=== PATIENT | male | born 1950 ===

== ENCOUNTER 2016-07-11 02:10 | Emergency (ER) | payer OTHER ==
[~2016-07-11 02:10] MED LIST: COLACE100 MG PO; NAPROSYN250 MG PO; NORCO1 TA1 PO; PEPCID20 MG PO; PERCOCET1 TA1 PO
--- NOTE | 2016-07-11 02:38 | ED CLINICAL REPORT ---
Clinical Report - Physicians/Mid Levels [facility] [address] [place] [address] 07/11/2016 2:15 [id number] Time Seen: 0225; initial patient contact. Arrived- By private vehicle. HISTORY OF PRESENT ILLNESS Chief Complaint: UPPER EXTREMITY PAIN. Modifying factors- worsened by movement. Made better by rest. This started today and is still present and worsening. It was abrupt in onset and has been constant but is not gone now. Severity is described as being severe. The quality is noted to be sharp, aching and similar to prior episodes. No radiation. No chest pain, difficulty breathing, sensory loss, motor loss or repetitive hand use at work. He has had swelling, but not had redness. (states he has gout and took colchicine. also states he took "oxycodone" but that has not helped. hx of gout. had a few drinks prior.). Patient denies an injury. Similar symptoms previously: Several times. Recent medical care: The patient was seen recently in a clinic. ( was told he needs to be on allopurinol but forgot to take it.). REVIEW OF SYSTEMS No fever or chills. All systems otherwise negative, except as recorded above. PAST HISTORY See nurses notes. SOCIAL HISTORY Never smoker. Alcohol use. History of occasional drug use: marijuana. No recent travel. Is a local resident. ADDITIONAL NOTES The nursing notes have been reviewed. PHYSICAL EXAM Vital Signs: 07/11/2016 02:22 BP: 160/95. HR: 107. RR: 17. O2 saturation: 95%. Temp: 98.1 F. Blood pressure normal. Oxygen saturation normal. Appearance: Alert. Oriented X3. No acute distress. CVS: Normal heart rate and rhythm. Heart sounds normal. Respiratory: No respiratory distress. Breath sounds normal. Abdomen: Soft and nontender. No organomegaly. Back: Normal inspection. No tenderness. ROM normal. Skin: Skin intact. Skin warm and dry. Normal skin color. Normal skin turgor. No pallor. Extremities: No lower extremity edema. (mild tenderness to the right wrist. no overlying skin changes. no increased warmth. no erythema. no crepitus. no rogelio abnormalities. decreased ROM secondary to pain. is able to move joint. compartments soft.). Extremities otherwise negative. Neuro: Oriented X 3. No motor deficit. No sensory deficit. PROGRESS AND PROCEDURES Course of Care: the patient is a pleasant 65-year-old male with past medical history significant for gout presented for reduction of wrist pain. Atraumatic based on patient's history. No signs of septic joint at this time. Likely gouty arthritis flare. Because of the patient's recent alcohol consumption and history of gout, we'll treat conservatively as a gout flare. No signs of septic joint at this time. Patient is afebrile. Overlying skin changes. Patient is able to move the joint however does so with some increase in pain. Patient is agreeable to the treatment plan. Patient's pain had resolved while here in the emergency department. No concern for septic joint at this time. Had a long discussion with patient in regards to gout and triggers for the count. Sited his recent alcohol consumption earlier this evening for the possible flare. Also discussed the patient other food triggers. Also discussed the patient possible infectious etiology. Because the patient's improved symptoms with analgesia and his colchicine, do not feel further workup in the emergency department is required. Do not feel laboratory studies or imaging would traffic incident management manager rkup. Emergency Department including diagnosis, home careuestions have been answered. The patient expressed understanding of m. Patient has been discharged home to a safe ride. Repeat examination continues to be reassuring. Disposition: Discharged. Condition: good. CLINICAL IMPRESSION 07/11/2016 02:22 BP: 160/95. HR: 107. RR: 17. O2 saturation: 95%. Temp: 98.1 F. Hypertensive. Oxygen saturation normal. Acute monoarthritis of the right wrist due to gout. Essential hypertension. INSTRUCTIONS Warnings: INFECTION: Watch for signs of infection (increasing heat and redness, pus-like drainage, swelling, or increased pain). Return or see your doctor if these signs occur. SEDATIVE MEDICATION: You were given sedative medication during your visit. Do not drive or operate dangerous machinery. CONTROLLED SUBSTANCE WARNINGS. GENERAL WARNINGS: Return or contact your physician immediately if your condition worsens or changes unexpectedly, if not improving as expected, or if other problems arise. Specifically return if pain, vomiting, bleeding, breathing difficulty or fever. Your Current Medications: CONTINUE TAKING THE FOLLOWING MEDICATIONS: Allopurinol Oral : not taking. Colchicine Oral : Tablet 0.6 mg, 2 tablets daily, gout. OxyCODONE HCl Oral : 5 mg, prn. Prescription Medications: morphine sulfate IR 15 mg tab. Take on tab every 6 hours as needed for break through pain. Disp 10 tabs. No refill. substitution allowed. Follow-up: Return to the emergency department as needed. Follow up with your doctor in three days. Reason for referral: recheck today's concerns. Summary of care provided to patient via paper. Screening today revealed the patient's blood pressure to be in the hypertensive range. The patient should follow up with a primary care provider for blood pressure management. Understanding of the discharge instructions verbalized by patient. (Electronically signed by Thai Stephens Dr. 07/15/2016 12:28)
--- NOTE | 2016-07-11 02:38 | ED NURSING NOTES ---
Clinical Report - Nurses Merged With [facility] [address] [place] [address] 07/11/2016 2:15 [id number] TRI[facility] Triage time 02:22. Acuity: LEVEL 4. Chief Complaint: RIGHT UPPER EXTREMITY PAIN and SWELLING. Alert. No acute distress. --02:27 Ashleigh Powell R.N. 02:22 07/11/16. BP: 160/95. HR: 107. RR: 17. O2 saturation: 95%. Temp: 98.1 F (oral). --02: Ashleigh Powell R.N. Weight: 124.7 kg stated. Height/Length: 72 inches Per Patient. BMI: 37.3. --02:23 Ashleigh Powell R.N. Medications Colchicine Oral (Tablet 0.6 mg) 2 tablets, daily, gout. --02:23 Ashleigh Powell R.N. Allopurinol Oral (not taking). --02:25 Ashleigh Powell R.N. OxyCODONE HCl Oral 5 mg, as needed. --02:26 Ashleigh Powell R.N. Allergies No Known Drug Allergy. --02:23 Ashleigh Powell R.N. History Arrived by private vehicle. Historian: patient. Primary physician (Chela). This occurred (about 3 days ago). 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 PAST MEDICAL HX: Tetanus status: up-to-date. SOCIAL HX: Never smoker. Regular alcohol use. History of occasional drug use: marijuana. NUTRITIONAL RISK ASSESSMENT: The nutritional risk assessment revealed no deficiencies. FUNCTIONAL ASSESSMENT: Functional assessment: no impairments noted. --:27 Ashleigh Powell R.N. PROBLEMS: Gout. --02:24 Ashleigh Powell R.N. ADDITIONAL SURGERIES: Knee Surgery. --02:24 Ashleigh Powell R.N. Interventions ID band on patient. To treatment room. --02:27 Ashleigh Powell R.N. PHYSICAL ASSESSMENT Ambulatory to room. EXTREMITIES: Neuro-vascular status intact to the extremity. Right wrist: tenderness and swelling. SKIN: Skin is warm and dry. --02:28 Ashleigh Powell R.N. NURSING PROGRESS NOTES Two patient identifiers checked. Call light placed in reach. Side rails up x 1. Bed placed in lowest position. Brakes of bed on. --02:28 Ashleigh Powell R.N. Patient ready for evaluation- chart flagged. --02:28 Ashleigh Powell R.N. 02:41 07/11/2016 Dilaudid (HYDROmorphone HCl PF) IM 2 mg given. Given in the right ventral gluteus. Allergies verified, confirmed 5 rights and sedative warning given to the patient. --02:41 Ronald Archibald R.N. 02:57 Right wrist wrapped in towel with 2 gloves filled with hot water and covered with warm blanket. --02:59 Ronald Archibald R.N. DISPOSITION / DISCHARGE 03:54 07/11/16. BP: 124/78. HR: 97. RR: 16. O2 saturation: 94% on room air. Temp: deferred. Mojica-Ann pain scale: 2/10. --03:55 Ashleigh Powell R.N. Condition at departure: improved. No learning barriers present. Discharge instructions provided and reviewed with the patient and spouse. Reviewed medication(s) side effects, precautions, dosing and course information. Prescription(s) given to the patient. Patient verbalized understanding. Written instructions provided in Georgian. The patient was discharged home and accompanied by spouse. He left the Emergency Department ambulatory and via private vehicle. Spouse driving. --03:55 Ashleigh Powell R.N. Locked/Released at 07/11/2016 3:56 by Ashleigh Powell R.N.
--- NOTE | 2016-07-11 02:38 | ED ORDER SUMMARY ---
..... Patient: MELANI BARRIENTOS OrderSheet [facility] VisitID: [id number] [address] [place] [address] 65y, M Registration Date/Time: 07/11/2016 ORDER SHEET Weight: 124.7 kg (stated) Allergies: No Known Drug Allergy GENERAL ORDERS: MEDICATION ORDERS: Dilaudid IM 2 mg (HIGH ALERT MEDICATION, NOW) (02:30 07/11/2016 Radha Nevarez) (Ack 2:37 JQuivey R.N.) (2:41 JQuivey R.N.) IV FLUIDS: ORDER SHEET NOTES: [Electronically signed by Ashleigh Powell R.N. (03:56 07/11/2016)] [Electronically signed by Thai Stephens Dr. (12:28 07/15/2016)] [Electronically locked/signed by Ashleigh Powell R.N. (03:56 07/11/2016)]
--- NOTE | 2016-07-11 02:38 | ED ORDER SUMMARY ---
..... Patient: MELANI BARRIENTOS OrderSheet [facility] VisitID: [id number] [address] [place] [address] 65y, M Registration Date/Time: 07/11/2016 ORDER SHEET Weight: 124.7 kg (stated) Allergies: No Known Drug Allergy GENERAL ORDERS: MEDICATION ORDERS: Dilaudid IM 2 mg (HIGH ALERT MEDICATION, NOW) (02:30 07/11/2016 Radha Nevarez) (Ack 2:37 JQuivey R.N.) (2:41 JQuivey R.N.) IV FLUIDS: ORDER SHEET NOTES: [Electronically signed by Ashleigh Powell R.N. (03:56 07/11/2016)] [Electronically signed by Thai Stephens Dr. (12:28 07/15/2016)] [Electronically locked/signed by Ashleigh Powell R.N. (03:56 07/11/2016)]
--- NOTE | 2016-07-11 02:38 | ED NURSING NOTES ---
Clinical Report - Nurses [facility] [address] [place] [address] 07/11/2016 2:15 [id number] Triage time 02:22. Acuity: LEVEL 4. Chief Complaint: RIGHT UPPER EXTREMITY PAIN and SWELLING. Alert. No acute distress. --02:27 Ashleigh Powell R.N. 02:22 07/11/16. BP: 160/95. HR: 107. RR: 17. O2 saturation: 95%. Temp: 98.1 F (oral). --02: Asheligh Powell R.N. Weight: 124.7 kg stated. Height/Length: 72 inches Per Patient. BMI: 37.3. --02:23 Ashleigh Powell R.N. Medications Colchicine Oral (Tablet 0.6 mg) 2 tablets, daily, gout. --02:23 Ashleigh Powell R.N. Allopurinol Oral (not taking). --02:25 Ashleigh Powell R.N. OxyCODONE HCl Oral 5 mg, as needed. --02:26 Ashleigh Powell R.N. Allergies No Known Drug Allergy. --02:23 Ashleigh Powell R.N. History Arrived by private vehicle. Historian: patient. Primary physician (Chela). This occurred (about 3 days ago). 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 PAST MEDICAL HX: Tetanus status: up-to-date. SOCIAL HX: Never smoker. Regular alcohol use. History of occasional drug use: marijuana. NUTRITIONAL RISK ASSESSMENT: The nutritional risk assessment revealed no deficiencies. FUNCTIONAL ASSESSMENT: Functional assessment: no impairments noted. --:27 Ashleigh Powell R.N. PROBLEMS: Gout. --02:24 Ashleigh Powell R.N. ADDITIONAL SURGERIES: Knee Surgery. --02:24 Ashleigh Powell R.N. Interventions ID band on patient. To treatment room. --02:27 Ashleigh Powell R.N. PHYSICAL ASSESSMENT Ambulatory to room. EXTREMITIES: Neuro-vascular status intact to the extremity. Right wrist: tenderness and swelling. SKIN: Skin is warm and dry. --02:28 Ashleigh Powell R.N. NURSING PROGRESS NOTES Two patient identifiers checked. Call light placed in reach. Side rails up x 1. Bed placed in lowest position. Brakes of bed on. --02:28 Ashleigh Powell R.N. Patient ready for evaluation- chart flagged. --02:28 Ashleigh Powell R.N. 02:41 07/11/2016 Dilaudid (HYDROmorphone HCl PF) IM 2 mg given. Given in the right ventral gluteus. Allergies verified, confirmed 5 rights and sedative warning given to the patient. --02:41 Ronald Archibald R.N. 02:57 Right wrist wrapped in towel with 2 gloves filled with hot water and covered with warm blanket. --02:59 Ronald Archibald R.N. DISPOSITION / DISCHARGE 03:54 07/11/16. BP: 124/78. HR: 97. RR: 16. O2 saturation: 94% on room air. Temp: deferred. Mojica-Ann pain scale: 2/10. --03:55 Ashleigh Powell R.N. Condition at departure: improved. No learning barriers present. Discharge instructions provided and reviewed with the patient and spouse. Reviewed medication(s) side effects, precautions, dosing and course information. Prescription(s) given to the patient. Patient verbalized understanding. Written instructions provided in Nepalese. The patient was discharged home and accompanied by spouse. He left the Emergency Department ambulatory and via private vehicle. Spouse driving. --03:55 Ashleigh Powell R.N. Locked/Released at 07/11/2016 3:56 by Ashleigh Powell R.N.
--- NOTE | 2016-07-15 12:28 | ED MED RECONCILIATION SUMMARY ---
Patient: MELANI BARRIENTOS Medication Reconciliation Report [facility] VisitID: [id number] [address] [place] [address] 65y, M Registration Date/Time: 07/11/2016 Weight: 124.7 kg Height/Length: 72 in. BMI: 37.3 ALLERGIES: No Known Drug Allergy The patient's Home Medications are listed below: CONTINUE TAKING THE FOLLOWING MEDICATIONS: Allopurinol Oral, not taking Colchicine Oral (0.6 mg) 2 tablets, daily, gout OxyCODONE HCl Oral 5 mg The source(s) of the original Home Medication information: Not obtained. The following Medications were given to the patient in the Emergency Department: Dilaudid [IM] IM 2 mg, administered: 07/11/2016 2:41:00 AM The following Medications were prescribed to the patient: morphine sulfate IR 15 mg tab. Take on tab every 6 hours as needed for break through pain. Disp 10 tabs. No refill. substitution allowed. -- Thai Stephens Dr.
--- NOTE | 2016-07-15 12:28 | ED MAR SUMMARY ---
..... Medication Administration Record [facility] [address] [place] [address] Patient: MELANI BARRIENTOS Visit ID: [id number] 65y, M Weight: 124.7 kg Height/Length: 72 in BMI: 37.3 ALLERGIES: No Known Drug Allergy Given 02:41 07/11/2016 Ronald Archibald R.N. Medication Administered: DILAUDID [IM] (HYDROMORPHONE HCL PF), Dose: 2 mg IM. Medication Ordered: Dilaudid IM 2 mg (HIGH ALERT MEDICATION, NOW).
--- NOTE | 2016-07-15 12:28 | ED DISCHARGE INSTRUCTIONS ---
Patient: MELANI BARRIENTOS General Instructions Located Within [facility] VisitID: [id number] [place] [address] 65y, M Registration Date/Time: 07/11/2016 07/11/2016 02:22 BP: 160/95. HR: 107. RR: 17. O2 saturation: 95%. Temp: 98.1 F. Hypertensive. Oxygen saturation normal. Acute monoarthritis of the right wrist due to gout. Essential hypertension. INSTRUCTIONS Warnings: INFECTION: Watch for signs of infection (increasing heat and redness, pus-like drainage, swelling, or increased pain). Return or see your doctor if these signs occur. SEDATIVE MEDICATION: You were given sedative medication during your visit. Do not drive or operate dangerous machinery. CONTROLLED SUBSTANCE WARNINGS. GENERAL WARNINGS: Return or contact your physician immediately if your condition worsens or changes unexpectedly, if not improving as expected, or if other problems arise. Specifically return if pain, vomiting, bleeding, breathing difficulty or fever. Your Current Medications: CONTINUE TAKING THE FOLLOWING MEDICATIONS: Allopurinol Oral : not taking. Colchicine Oral : Tablet 0.6 mg, 2 tablets daily, gout. OxyCODONE HCl Oral : 5 mg, prn. Prescription Medications: morphine sulfate IR 15 mg tab. Take on tab every 6 hours as needed for break through pain. Disp 10 tabs. No refill. substitution allowed. Follow-up: Return to the emergency department as needed. Follow up with your doctor in three days. Reason for referral: recheck today's concerns. Summary of care provided to patient via paper. Screening today revealed the patient's blood pressure to be in the hypertensive range. The patient should follow up with a primary care provider for blood pressure management. Understanding of the discharge instructions verbalized by patient. ADDITIONAL INFORMATION High Blood Pressure -- To Be Confirmed [No Tx] Your blood pressure was higher today than normal. Sometimes anxiety or pain can cause a temporary rise in blood pressure that later returns to normal. If your blood pressure is high on one measurement, this does not mean that you have hypertension (a chronic illness). However, you must have your blood pressure measured again within the next few days to find out if its still high. A normal blood pressure is 120/80 or less. The first (top) number is the "systolic" pressure. The second (bottom) number is the "diastolic" pressure. Hypertension exists when either the top number is 140 or higher, OR the bottom number is 90 or higher on repeated measurements. Blood pressure in the range of 120-140 (systolic) or 80-89 (diastolic) is considered "pre-hypertension". This means your are at risk for getting hypertension. You should have regular blood pressure checks to be sure your blood pressure is not rising. Home Care: Measure your blood pressure on 3 different days and write down the results. This can be done at your doctor's office or this facility. Some pharmacies and grocery stores offer automated blood pressure machines for your use. Follow Up: If your blood pressure is "high" (over 120/80) on 2 out of 3 days, you will need to follow up with your doctor for further evaluation and treatment. DO NOT PUT THIS OFF! Untreated high blood pressure increases the risk for heart attack, also known as acute myocardial infarction, or AMI, and stroke. It is a treatable condition. Get Prompt Medical Attention if any of the following occur: Chest pain or shortness of breath Severe headache Throbbing or rushing sound in the ears Nosebleed Sudden severe abdominal pain Extreme drowsiness, confusion or fainting Dizziness or vertigo (dizziness with spinning sensation) Weakness of an arm or leg or one side of the face Difficulty with speech or vision Gout Gout or "gouty arthritis" is an inflammation of a joint due to a build-up of gout crystals in the joint fluid. This occurs when there is an excess uric acid (a normal waste product) in the body. Uric acid builds up in the body when the kidneys are unable to filter enough of it from the blood. This may occur with aging or kidney disease. Gout occurs more often in persons with obesity, diabetes, hypertension, high fats in the blood. It may be present in other family members. Alcohol and certain foods (such as shellfish and alcohol) may increase uric acid levels in the blood and cause a gout attack. Gout causes a hot, red, swollen and painful joint. If you have had one episode of gout, you are likely to have another. An acute attack of gout can be treated with anti-inflammatory and other medicine. If these attacks become frequent it may be necessary to take a daily medicine to help the kidney remove uric acid from the body. Home Care: Apply an ice pack (ice cubes in a plastic bag, wrapped in a towel) over the injured area for 20 minutes every 1-2 hours the first day for pain relief. Continue this 3-4 times a day until the pain and swelling goes away. Avoid alcohol and foods listed below (see Prevention) during a gout attack. Drink extra fluid to help flush the uric acid through your kidneys. Rest painful joints. If gout affects the joints of your foot or leg, you may want to use crutches for the first few days to keep from bearing weight on the foot or leg. Take anti-inflammatory medicine as directed. You may be prescribed Indocin (indomethacin), or ggle-fbm-tvhoffa drugs such as ibuprofen (Motrin, Advil) or naproxen (Naprosyn or Aleve). Tylenol will not be as effective since it is not an anti-inflammatory drug. If narcotic pain medicines have been prescribed, they should be used in addition to the anti-inflammatory drugs and only for severe pain. Avoid aspirin since this may slow down the flushing of the uric acid through your kidneys. Preventing Future Attacks: Minimize or avoid alcohol use. Excess alcohol intake can cause a gout attack. Foods high in purine form uric acid in the body and increase your risk for a gout attack. Therefore, avoid the following foods: certain seafoods (anchovies, sardines, shrimp, scallops, avery, mackerel); wild game, meat extracts and meat gravies; organ foods (kidney, liver, calf brain, sweetbreads). Avoid drinks with fructose (a type of sugar). Limit the following foods to one serving a day: red meat and pork, fish, poultry, dried beans and peas, asparagus, mushrooms, cauliflower and spinach. If you are overweight, this is a risk factor and you should talk to your doctor about a weight reduction plan. However, avoid fasting or extreme low calorie diets (less than 900 jose elias/day) which will increase uric acid levels in the body. If you are diabetic or have high blood pressure, work with your doctor to achieve control of these conditions. Avoid injury to the involved joint since this can lead to a gout attack. Colchicine can be effective in stopping a gout attack. If you were given a prescription of this medicine for future use, begin it at the first sign of an attack. Colchicine may cause nausea, vomiting, diarrhea and other side effects. Follow Up with your doctor as advised or if you are not improving after three days of treatment. Get Prompt Medical Attention if any of the following occur: Fever over 100.4F (38.0C) with worsening joint pain Increasing redness around the joint Pain developing in another joint Repeated vomiting, abdominal pain, or blood in the vomit or stool (black or red color) You have been given the following additional information: Hypertension, To Be Confirmed Gouty Arthritis (Electronically signed by Thai Stephens Dr. 07/15/2016 12:28)
--- NOTE | 2016-07-15 12:28 | ED MED RECONCILIATION SUMMARY ---
Patient: MELANI BARRIENTOS Medication Reconciliation Report [facility] VisitID: [id number] [address] [place] [address] 65y, M Registration Date/Time: 07/11/2016 Weight: 124.7 kg Height/Length: 72 in. BMI: 37.3 ALLERGIES: No Known Drug Allergy The patient's Home Medications are listed below: CONTINUE TAKING THE FOLLOWING MEDICATIONS: Allopurinol Oral, not taking Colchicine Oral (0.6 mg) 2 tablets, daily, gout OxyCODONE HCl Oral 5 mg The source(s) of the original Home Medication information: Not obtained. The following Medications were given to the patient in the Emergency Department: Dilaudid [IM] IM 2 mg, administered: 07/11/2016 2:41:00 AM The following Medications were prescribed to the patient: morphine sulfate IR 15 mg tab. Take on tab every 6 hours as needed for break through pain. Disp 10 tabs. No refill. substitution allowed. -- Thai Stephens Dr.
--- NOTE | 2016-07-15 12:28 | ED MAR SUMMARY ---
..... Medication Administration Record [facility] [address] [place] [address] Patient: MELANI BARRIENTOS Visit ID: [id number] 65y, M Weight: 124.7 kg Height/Length: 72 in BMI: 37.3 ALLERGIES: No Known Drug Allergy Given 02:41 07/11/2016 Ronald Archibald R.N. Medication Administered: DILAUDID [IM] (HYDROMORPHONE HCL PF), Dose: 2 mg IM. Medication Ordered: Dilaudid IM 2 mg (HIGH ALERT MEDICATION, NOW).
== END 2016-07-11 03:56 | disposition home or self-care (01) ==
LOC: ED SRH 02:10
DX: M13.131 Monoarthritis, not elsewhere classified, right wrist (principal); M10.9 Gout, unspecified; I10 Essential (primary) hypertension